=== PATIENT | female | born 1980 | race Caucasian/White ===

== ENCOUNTER 2024-07-26 17:20 | Emergency (ER) | payer OTHER, SELFPAY ==
[2024-07-26 17:22] VITALS: BP 174/108
[2024-07-26 18:13] VITALS: BMI 21.8
--- NOTE | 2024-07-26 18:18 | ED.GENMED ---
History of Present Illness
General
Chief Complaint: Headache
Source: patient
Exam Limitations: none
Time Seen by Provider: 07/26/24 18:00
Nursing documentation reviewed up to this point in time: agreed with
History of Present Illness
History of Present Illness:
Patient is a 44-year-old female past medical history of pseudotumor cerebri/intracranial hypertension and venous sinus stenosis. Intracranial hypertension was diagnosed at age 22. At that time she was on Diamox and Topamax. Patient has had
pulsating sensation in her eyeballs and increased headaches and neck pain when lying flat. She also has back pain. She is concerned that her intracranial hypertension is what is causing her symptoms. She started having increasing symptoms in
March. She has not seen her specialist in years but she does have an appoint with Nikhil Cunningham which she saw previously in September and she has an appointment with [facility] mccarty in August
She saw her family doctor today however who recommended she come to the ER for evaluation and possible treatment
Review of Systems
Review of Systems
Allergies reviewed?: Yes
All Other Systems: ROS reviewed and negative except as documented in HPI and ROS
Constitutional: Reports no symptoms
EENT: Reports other (pulsating in eyes )
Respiratory: Reports no symptoms
Cardiac: Reports no symptoms
ABD/GI: Reports no symptoms; Denies nausea or vomiting
: Reports no symptoms
Musculoskeletal: Reports neck pain and back pain
Skin: Reports no symptoms
Neurological: Reports headache
Psychiatric: Reports no symptoms
Phy Exam
General Physical Exam
General Presentation: no apparent distress
General age: appears stated age
General Skin: warm and dry
General Habitus: normal
General Mental: alert
General Hydration: appears well hydrated
Eye Exam
Eye Exam: PERRL and EOMI
Eye Exam General: PERRL: bilateral and EOM intact: bilateral
Pupil Exam: Bilateral: round and reactive
Neurological Exam
Neurological Exam: alert, oriented x3, no motor deficits and no sensory deficits
Manolo Coma Scale
Eye Opening: Spontaneous
Verbal Response: Oriented
Motor Response: Obeys Commands
GCS Total Score: 15
Cerebellar
Cerebellar Function: normal finger to nose
Musculoskeletal Exam
Musculoskeletal Exam: full ROM
Skin Exam
Skin Exam: normal color and warm/dry
Psychiatric Exam
Psychiatric Exam: normal mood/affect
Course
Orders/Labs/Results
Orders:
Orders
07/26/24 20:12
Acetazolamide [Diamox] 250 mg PO NOW STA
Topiramate [Topamax] 100 mg PO NOW STA
Vital Signs
Initial and Last Documented VS:
Initial Vital Signs
Temp Pulse Resp BP Pulse Ox
98.0 F 93 19 174/108 97
07/26/24 17:22 07/26/24 17:22 07/26/24 17:22 07/26/24 17:22 07/26/24 17:22
Last Documented Vital Signs
Temp Pulse Resp BP Pulse Ox
98.0 F 67 19 133/84 98
07/26/24 17:22 07/26/24 20:55 07/26/24 17:22 07/26/24 20:55 07/26/24 20:55
MDM/Problems Addressed
MDM/Problems Addressed:
As documented patient is a 44-year-old female has a history of intracranial hypertension/venous sinus stenosis however has not been treated for years. She has had increasing symptoms since March and is scheduled to see [facility] neurology in
September. She denies any visual changes but does feel at times her eyes are pulsating she does feel symptoms worse with laying down. She presents awake alert no acute distress normal neurological exam nontoxic no meningismus no recent fevers. Case
discussed with ED physician Case discussed with neurology Dr. Villagomez who alisson pt and reports no evidence of papilledema. He recommends only diamox. will hold off on LP and will hold off as per neuro on Diamox.
Stable for d/c home.
*Pulse Oximetry
Patient hypoxic: no
*Critical Care Note
Total Time (30-74mins, 75-104mins- exclusive of procedures): Not Applicable
Patient Management
Discussion with other providers: Patient Care (DR Villagomez, neuro )
ED Attending Note
-
Portions of this chart may have been created with voice recognition software.� Occasional wrong word or��sound alike� substitutions may have occurred due to the inherent limitations of voice recognition software.
Discharge Plan
Departure
Patient Disposition: Home (Routine Discharge)
Patient with high blood pressure during this ER visit?: Yes
Condition: Fair
Covid-19: Not Applicable
Discharge Problem:
Headache
Instructions: Headache, Adult (DC), BLOOD PRESSURE
Prescriptions:
New
topiramate [Topamax] 100 mg tablet
100 mg PO BID Qty: 60 0RF
No Action
vit-iron fum-folic ac 1 EACH tablet
1 ea PO DAILY
ibuprofen 600 MG tablet
600 mg PO Q6HPRN PRN (Reason: moderate pain/cramps) 0RF
Referrals:
UNKNOWN - PT DOES,NOT KNOW [Family Provider]
Activity Restrictions/Additional Instructions:
As discussed a prescription for Topamax was sent to your pharmacy take 100 mg twice a day.
Please call your neurologist to make an appointment sooner. Return if any worsening of symptoms.
Interventions
Interventions:
*Risk Screen - Suicide Last Done: 07/26/24 17:27
*General Assessment Last Done: 07/26/24 17:27
*Neglect/Abuse Screening Last Done: 07/26/24 17:27
*ED COVID-19 Vaccine History Last Done: 07/26/24 17:27
*Nursing Disposition Last Done: 07/26/24 22:10
ED- Neurological Assessment Last Done: 07/26/24 18:13
Discharge Date and Time
Discharge Date/Time: 07/26/24 22:11
Print Language: PASHTO
[2024-07-26] MEDS: TOPAMAX 100 MG PO (20:32)
--- NOTE | 2024-07-26 20:39 | CON.NEURO ---
Neuro Assessment/Plan
Assessment
no papilledema to suggest recurrence of IIH.
I believe headaches are cervicogenic/msk in etiology, attempted OMT but unable to mobilize
Will restart topamax 100 BID for headaches but I see no role for diamox
recommend outpatient PT, massage, OMT, physical modalities
Consultation
Order
Date of Consultation: 07/26/24
Requesting Provider: Sherita Baker
Reason for Consult: headache
Subjective/Objective
Subjective Data
Date of Service: July 26, 2024
Patient is a 44-year-old female past medical history of pseudotumor cerebri/intracranial hypertension and venous sinus stenosis. Intracranial hypertension was diagnosed at age 22. At that time she was on Diamox and Topamax. Patient has had
pulsating sensation in her eyeballs and increased headaches and neck pain when lying flat. She also has back pain. She is concerned that her intracranial hypertension is what is causing her symptoms. She started having increasing symptoms in
March. She has not seen her specialist in years but she does have an appoint with [facility] which she saw previously in September and she has an appointment with [facility] neuro in August
She saw her family doctor today however who recommended she come to the ER for evaluation and possible treatment
She follows with [facility] neuro IIH clinic, had numerous lumbar punctures and eventually came off Topamax and Diamox age 26. pulsatile tinnitus x9 years.
Objective Data
Vital Signs
Temp Pulse Resp BP Pulse Ox
36.7 C 93 19 174/108 97
07/26/24 17:22 07/26/24 17:22 07/26/24 17:22 07/26/24 17:22 07/26/24 17:22
Patient Allergies
Sulfa (Sulfonamide Antibiotics) Allergy (Verified 07/05/23 10:43)
Anaphylaxis
Physical Exam
-
no papilledema
PERRLA 5mm, EOMI, face symmetric
full strength b/l UE/LE
atlanto axial subluxation, and left paraspinal trigger points palpated.
Medications
-
Home Medications
�Medication �Instructions �Recorded
vitamin-ferrous fumarate 1 ea PO DAILY Supplement 12/26/19
28 mg iron-folic acid 800 mcg
tablet
ibuprofen 600 mg tablet 600 mg PO Q6HPRN PRN moderate 12/28/19
pain/cramps
[2024-07-26 20:55] VITALS: BP 133/84
== END 2024-07-26 22:11 | disposition home or self-care (01) ==
LOC: EMR 17:20
PROVIDERS: EMERGENCY PHYSICIAN Emergency Medicine; OTHER PHYSICIAN Psychiatry & Neurology Clinical Neurophysiology
DX: R51.9 Headache, unspecified (principal); G93.2 Benign intracranial hypertension; Z88.2 Allergy status to sulfonamides
CPT/HCPCS: 99283